=== PATIENT | male | born 1950 | race African-American/Black ===

== ENCOUNTER 2016-09-25 05:49 | Emergency (ER) | payer MEDICAID ==
[~2016-09-25] VITALS: Ht 182.9 cm; Wt 86.0 kg
[2016-09-25 07:31] LABS: HEMATOCRIT. 36.6 % (42.0-52.0); HEMOGLOBIN. 12.3 g/dL (14.0-18.0); MEAN CORPUSCULAR HEMOGLOBIN 34.4 pg (28.0-32.0); MEAN CORPUSCULAR HGB CONC 33.6 g/dL (31.0-37.0); MEAN CORPUSCULAR VOLUME 102.4 fL (80.0-94.0); MEAN PLATELET VOLUME 7.9 fl (7.4-10.4); PLATELET 220 x1000/uL (130-400); RED BLOOD CELL COUNT 3.58 mill/uL (4.7-6.1); RED CELL DISTRIBUTION WIDTH 13.1 % (11.6-14.6)
[2016-09-25 07:32] LABS: DIFFERENTIAL COMMENT 1
[2016-09-25 07:37] LABS: PROTHROMBIN TIME 10.6 sec
[2016-09-25 07:40] LABS: ALBUMIN 3.2 g/dL (3.4-5.0); ANION GAP 12; CALCIUM 8.3 mg/dL (8.5-10.1); CARBON DIOXIDE 22 mEq/L (21-32); CHLORIDE 111 mEq/L (98-107); INDEX HEMOLYSI 1 (1-3); INDEX ICTERIC 1 (1-4); INDEX LIPEMIC 1 (1-3)
[2016-09-25 07:41] LABS: UREA NITROGEN BLOOD 22 mg/dL (7-21)
[2016-09-25 07:46] LABS: ALANINE AMINOTRANSFERASE 24 IU/L (13-61); eGFR > 60 mL/min (>60)
[2016-09-25 07:49] LABS: CLARITY URINE CLEAR (CLEAR); COLOR URINE YELLOW (YELLOW); GLUCOSE URINE NEGATIVE (NEGATIVE); KETONES URINE TRACE (NEGATIVE); LEUKOCYTE ESTERASE URINE TRACE (NEGATIVE); NITRITE URINE NEGATIVE (NEGATIVE); OCCULT BLOOD URINE NEGATIVE (NEGATIVE); PROTEIN URINE NEGATIVE (NEGATIVE); SPECIFIC GRAVITY URINE 1.034 (1.005-1.030)
[2016-09-25 07:51] LABS: PLATELET ESTIMATE NORMAL
[2016-09-25] MEDS ORDERED: LEVOFLOXACIN 500MG PREMIX 100 ML IV ONE (08:30)
[2016-09-25] MEDS ORDERED: HYDROCODONE/ACETAMINOPHEN 5/325MG TABLET PO ONE (08:45)
[2016-09-25 08:47] LABS: SQUAMOUS EPITHELIAL CELL URINE FEW /lpf (RARE/1+)
[2016-09-25 08:48] LABS: BACTERIA URINE TRACE
[2016-09-25 08:50] LABS: RBC URINE NONE SEEN /hpf (0-2)
[2016-09-25 08:52] LABS: YEAST URINE 1+
[2016-09-25 10:20] VITALS: BP 114/65
== END 2016-09-25 10:40 | disposition home or self-care (01) ==
LOC: ER 05:52
DX: N45.1 Epididymitis (principal); N28.9 Disorder of kidney and ureter, unspecified
CPT/HCPCS: 36415; 76870; 80053; 81001; 85025; 85610; 93976; 96365; 99285; J1956; Z7610